=== PATIENT | male | born 1970 | race African-American/Black ===

== ENCOUNTER 2016-11-15 13:12 | Emergency (ER) | payer OTHER, BC ==
[~2016-11-15] VITALS: Ht 180.3 cm; Wt 95.0 kg
[~2016-11-15 13:12] MED LIST: ADVAIR 250-501 EACH IH; LEVAQUIN750 MG PO; PREDNISONE20 MG PO; PROVENTIL HFA6.7 GM IH; PROVENTIL,2.5 MG/3 M IH; SINGULAIR10 MG PO; VENTOLIN HFA18 GM IH
[2016-11-15] MEDS ORDERED: LIDODERM 5% P1 PATCH TD (13:53)
[2016-11-15] MEDS ORDERED: FLEXERIL10 MG PO (13:53)
[2016-11-15 15:41] VITALS: BP 143/87
== END 2016-11-15 15:41 | disposition home or self-care (01) ==
LOC: EME 13:12
DX: S39.012A Strain of muscle, fascia and tendon of lower back, initial encounter (principal); X50.0XXA Overexertion from strenuous movement or load, initial encounter; Y99.0 Civilian activity done for income or pay
CPT/HCPCS: 72100; 99281; 99283; J1885